=== PATIENT | female | born 1995 | race Caucasian/White ===

== ENCOUNTER 2023-08-10 02:30 | Emergency (ER) | payer SELFPAY ==
[2023-08-10 02:32] VITALS: BP 148/108; PULSE 118; O2SAT 98
[2023-08-10 02:35] VITALS: BP 134/82; PULSE 107; RESP 20; TEMP 36.6; O2SAT 97; BMI 27.5
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
--- NOTE | 2023-08-10 02:51 | PC.NURSE ---
pt father at bedside requesting to take pt home.
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
[2023-08-10 03:16] VITALS: BP 134/82; PULSE 107; RESP 20; TEMP 36.6; O2SAT 97
== END 2023-08-10 03:18 | disposition home or self-care (01) ==
PROVIDERS: Emergency Provider Emergency Medicine
DX: F10.129 Alcohol abuse with intoxication, unspecified (principal)
CPT/HCPCS: 99282; 99284